=== PATIENT | female | born 1980 | race Caucasian/White ===

== ENCOUNTER 2017-07-21 19:28 | Emergency (ER) | payer MEDICAID ==
[~2017-07-21] VITALS: Ht 149.9 cm; Wt 91.2 kg
[2017-07-21 19:39] VITALS: BP 134/77
--- NOTE | 2017-07-21 20:12 | NUR ---
Patient ambulated to bed 06.
--- NOTE | 2017-07-21 20:25 | NUR ---
36 Y/O F W/C/O R LOWER ABD PAIN THAT STARTED AN EPIGASTRIC PAIN AND MOVED TO R LOWER ABD. PT ALSO STATES TO FEEL NAUSEATED. MED HX PSORIASIS, RHEUMATOID ARTHRITIS. NO OTHER S/S OF DISTRESS NOTED, ER MADE AWARE.
[2017-07-21] MEDS ORDERED: NACL 0.9% 500 ML IV ONE (20:37)
[2017-07-21] MEDS ORDERED: ONDANSETRON 4 MG/2 ML VIAL IVP ONE (20:40)
[2017-07-21] MEDS ORDERED: KETOROLAC 30 MG/ML VIAL IVP ONE (20:40)
[2017-07-21 20:51] LABS: BASOPHILS # (AUTO) 0.9 K/uL (0.00-0.22); EOSINOPHILS # (AUTO) 0.2 K/uL (0-0.4); HEMATOCRIT 39.6 % (36-48); LYMPHOCYTES # (AUTO) 2.5 K/uL (2.5-16.5); MEAN CORPUSCULAR HEMOGLOBIN 28 pg (27-31); MEAN CORPUSCULAR HGB CONC 33 g/dL (33-37); MEAN CORPUSCULAR VOLUME 85 fL (80-94); MONOCYTES # (AUTO) 0.6 K/uL (0.8-1.0); NEUTROPHILS # (AUTO) 10.1 K/uL (1.8-7.7); PLATELET COUNT (AUTO) 301 K/uL (140-450); RED BLOOD CELL COUNT(AUTO) 4.68 MIL/uL (4.20-5.40); RED CELL DISTRIBUTION WIDTH 14.4 % (11.6-13.7); WHITE BLOOD COUNT (AUTO) 14.3 K/uL (4.8-10.8)
[2017-07-21 21:05] LABS: ANION GAP 13.3 (8-16); CARBON DIOXIDE 28.2 mmol/L (21-32); CREATININE 0.9 mg/dL (0.6-1.3); POTASSIUM 3.5 mmol/L (3.5-5.1)
[2017-07-21 21:08] LABS: ALBUMIN 3.8 g/dL (3.4-5.0); TOTAL BILIRUBIN 0.6 mg/dL (0.0-1.0)
--- NOTE | 2017-07-21 21:10 | NUR ---
PT RESTING IN BED, NO S/S OF DISTRESS NOTED AT THE MOMENT. VSS.
[2017-07-21 23:10] VITALS: BP 118/74
--- NOTE | 2017-07-21 23:10 | NUR ---
Patient discharged with v/s stable. Written and verbal after care instructions given and explained. Patient alert, oriented and verbalized understanding of instructions. Ambulatory with steady gait. All questions addressed prior to discharge. ID band removed. Patient advised to follow up with PMD OR RETURN TO ER IF CONDITION WORSENS. Rx of ZOFRAN, AND TRAMADOL given. Patient educated on indication of medication including possible reaction and side effects. Opportunity to ask questions provided and answered.
== END 2017-07-21 23:10 | disposition home or self-care (01) ==
LOC: MED 19:28
DX: K29.70 Gastritis, unspecified, without bleeding (principal); M06.9 Rheumatoid arthritis, unspecified
CPT/HCPCS: 36415; 76705; 80053; 81002; 81025; 83690; 85025; 96361; 96374; 96375; 99285; J1885; J2405; Q0092

== ENCOUNTER 2017-08-12 22:42 | Inpatient (IN) | payer MEDICAID ==
[~2017-08-12] VITALS: Ht 149.9 cm; Wt 90.7 kg
[2017-08-12 22:49] VITALS: BP 125/76
--- NOTE | 2017-08-12 22:55 | NUR ---
Patient being evaluated by physician at [facility].
[2017-08-12] MEDS ORDERED: NACL 0.9% 1,000 ML IV ONE (22:59)
--- NOTE | 2017-08-12 23:00 | NUR ---
AMBULATED TO ER BED 4
--- NOTE | 2017-08-12 23:20 | NUR ---
36 Y/O F W/C/O R LOWER ABD PAIN X 2 YEARS ON AND OFF. PT DENIES ANY PAIN AT THE MOMENT. PT CONTACTED BY PMD AND REFERRED BY PMD AFTER RESULTS FROM CT SCAN OF ABD TO COME HERE D/T INFECTION IN APPENDIS. MED HX RHEUMOARTHRITIS, HYPERTHYROIDIS, PSORRIASIS.
[2017-08-12 23:21] LABS: APPEARANCE,URINE TURBID (CLEAR); BILIRUBIN,URINE 1+ (NEGATIVE); BLOOD, URINE 3+ (NEGATIVE); COLOR,URINE YELLOW (YELLOW); LEUKOCYTE ESTERASE ,URINE NEGATIVE (NEGATIVE); NITRITE, URINE NEGATIVE (NEGATIVE); UGLUCOSE NEGATIVE (NEGATIVE)
[2017-08-12 23:25] LABS: BASOPHILS # (AUTO) 0.2 K/uL (0.00-0.22); BASOPHILS % (AUTO) 3.2 % (0.0-2.0); EOSINOPHILS # (AUTO) 0.1 K/uL (0-0.4); EOSINOPHILS % (AUTO) 1.1 % (0.0-4.0); HEMATOCRIT 39.6 % (36-48); HEMOGLOBIN 13.1 g/dL (12.0-16.0); LYMPHOCYTES % (AUTO) 13.1 % (20.5-51.1); MEAN CORPUSCULAR HEMOGLOBIN 28 pg (27-31); MEAN CORPUSCULAR HGB CONC 33 g/dL (33-37); MEAN CORPUSCULAR VOLUME 85 fL (80-94); MONOCYTES # (AUTO) 0.7 K/uL (0.8-1.0); MONOCYTES % (AUTO) 9.3 % (1.7-9.3); NEUTROPHILS # (AUTO) 5.7 K/uL (1.8-7.7); NEUTROPHILS % (AUTO) 73.3 % (42.2-75.2); PLATELET COUNT (AUTO) 367 K/uL (140-450); RED BLOOD CELL COUNT(AUTO) 4.67 MIL/uL (4.20-5.40); RED CELL DISTRIBUTION WIDTH 14.7 % (11.6-13.7); WHITE BLOOD COUNT (AUTO) 7.7 K/uL (4.8-10.8)
[2017-08-12 23:30] LABS: ANION GAP 11.1 (8-16); CARBON DIOXIDE 27.3 mmol/L (21-32); CREATININE 0.8 mg/dL (0.6-1.3); POTASSIUM 3.4 mmol/L (3.5-5.1)
[2017-08-12 23:36] LABS: ALBUMIN 3.7 g/dL (3.4-5.0); TOTAL BILIRUBIN 0.4 mg/dL (0.0-1.0)
[2017-08-12 23:37] LABS: RBC,URINE 3-10 (FEW) /HPF (0-5)
[2017-08-13] MEDS ORDERED: metroNIDAZOLE 500 MG/NS PREMIX 100 ML IV ONE (00:45)
[2017-08-13] MEDS ORDERED: NACL 0.9% 1,000 ML IV ONE (00:45)
[2017-08-13] MEDS ORDERED: PIPERACILLIN/TAZOBACTAM 3.375 GM in DEXTROSE 5% 50 ML IV ONE (00:45)
[2017-08-13] MEDS ORDERED: PIPERACILLIN/TAZOBACTAM 3.375 GM VIAL IV ONE ×2 (00:59→04:08)
[2017-08-13] MEDS ORDERED: ACETAMINOPHEN 325 MG TAB PO PRN (01:15)
[2017-08-13] MEDS ORDERED: ONDANSETRON 4 MG/2 ML VIAL IVP PRN ×2 (01:15→10:05)
--- NOTE | 2017-08-13 01:27 | NUR ---
Patient will be admitted to care of DR DIAS. Admited to TELE 106A. Will go to room 106A. Belongings list completed. Report to KAYLEIGH LIU .
[2017-08-13 01:35] VITALS: BP_SYST 111; BP_SYST 76; BP_DIAS 76
--- NOTE | 2017-08-13 01:35 | NUR ---
Admitted from ER, with chief complaint of ABD PAIN, DX ACUTE APPENDICITIS 36 y/o, Female, Cooperative, AOX4, AMBULATORY, ABLE TO VERBALIZE NEEDS. PT'S CC IS ABD PAIN THAT SHE HAS BEEN HAVING INTERMITTENTLY 2 YEARS AGO, BUT STARTED WORSENING SINCE 07/23/17 WHEN SHE WENT TO THE ER. PT REPORTS GOING TO HAVE CT SCAN WITH CONTRAST TODAY AT PCP AND WAS REFERRED TO GO TO THE ER. BUT PT DENIES ABD PAIN AT THIS TIME, NO REBOUND TENDERNESS NOTED ON RLQ. PT DENIES NAUSEA/VOMITING. ABD IS SOFT, LARGE AND NONTENDER, BOWELS SOUNDS ACTIVE ALL QUADRANTS. AGRICULTURAL PRODUCE PACKER IN PLACE. PT DENIES CHEST PAIN, SOB OR S/S OF ACUTE DISTRESS. MULTIPLE RASHES NOTED ON BACK, ABD, BUE AND BLE, PT HAS HX PSORIASIS. WILL CALL FOR SCDs ORDERED IV ACCESS ASYMPTOMATIC, PATENT AND INTACT. IVPB FROM ER STILL INFUSING. DISCUSSED AND REVIEWED PLAN OF CARE WITH PT. PT VERBALIZED UNDERSTANDING. oriented to call light, bed, phone,television, bathroom, smoking policy, visiting hours, procedures, ID bracelet on. Belongings list checked. ALL NEEDS MET. SAFETY MEASURES ENSURED. CALL LIGHT WITHIN REACH. WILL CONTINUE TO MONITOR.
[2017-08-13 01:37] LABS: PROTHROMBIN TIME 9.9 secs (10.8-13.4)
[2017-08-13 01:49] LABS: BARBITURATE, URINE NEG. ng/ml (NEG <=200); BENZODIAZEPINE, URINE NEG. ng/mL (NEG <=200); CANNABINOID, URINE NEG. ng/mL (NEG <=50); COCAINE, URINE NEG. ng/mL (NEG <=300); OPIATE, URINE NEG. ng/mL (NEG <=2000); PHENCYCLIDINE SCREEN,URINE NEG. ng/mL (NEG <=25)
[2017-08-13 01:50] LABS: CHOL/HDL RATIO 4.3 (1-4.5); FREE T4 (FREE THYROXINE) 0.92 ng/dL (0.76-1.46); MAGNESIUM 1.9 mg/dL (1.8-2.4); PHOSPHORUS 3.9 mg/dL (2.5-4.9); THYROID STIMULATING HORMONE 23.04 uIU/mL (0.34-3.74)
[2017-08-13] MEDS: NACL 0.9% 1,000 ML IV SCH ×3 (02:07→16:35)
[2017-08-13] MEDS ORDERED: LEVO0.0211 PO (02:51)
[2017-08-13 04:00] VITALS: BP 120/66
[2017-08-13] MEDS: PIPER/TAZO 3.375GM/D5W PREMIX 50 ML IV SCH ×3 (04:09→20:30)
--- NOTE | 2017-08-13 04:12 | NUR ---
ADMINISTERED DUE ZOSYN IVPB WITH EDUCATION. PT VERBALIZED UNDERSTANDING, TOLERATED MED WELL. ALL NEEDS MET. IVPB INFUSING WELL. SAFETY MEASURES ENSURED. CALL LIGHT WITHIN REACH. WILL CONTINUE TO MONITOR.
[2017-08-13] MEDS: metroNIDAZOLE 500 MG/NS PREMIX 100 ML IV SCH ×3 (04:50→21:30)
[2017-08-13 06:46] LABS: BASOPHILS # (AUTO) 0.1 K/uL (0.00-0.22); BASOPHILS % (AUTO) 1.9 % (0.0-2.0); EOSINOPHILS # (AUTO) 0.1 K/uL (0-0.4); EOSINOPHILS % (AUTO) 1.9 % (0.0-4.0); HEMATOCRIT 35.3 % (36-48); HEMOGLOBIN 11.9 g/dL (12.0-16.0); LYMPHOCYTES # (AUTO) 1.2 K/uL (2.5-16.5); LYMPHOCYTES % (AUTO) 20.5 % (20.5-51.1); MEAN CORPUSCULAR HEMOGLOBIN 29 pg (27-31); MEAN CORPUSCULAR HGB CONC 34 g/dL (33-37); MEAN CORPUSCULAR VOLUME 85 fL (80-94); MONOCYTES # (AUTO) 0.5 K/uL (0.8-1.0); MONOCYTES % (AUTO) 7.8 % (1.7-9.3); NEUTROPHILS # (AUTO) 3.9 K/uL (1.8-7.7); NEUTROPHILS % (AUTO) 67.9 % (42.2-75.2); PLATELET COUNT (AUTO) 316 K/uL (140-450); RED BLOOD CELL COUNT(AUTO) 4.16 MIL/uL (4.20-5.40); RED CELL DISTRIBUTION WIDTH 14.7 % (11.6-13.7); WHITE BLOOD COUNT (AUTO) 5.8 K/uL (4.8-10.8)
[2017-08-13 07:06] LABS: ANION GAP 12.7 (8-16); CARBON DIOXIDE 24.6 mmol/L (21-32); CREATININE 0.7 mg/dL (0.6-1.3); POTASSIUM 3.3 mmol/L (3.5-5.1)
--- NOTE | 2017-08-13 07:10 | NUR ---
ENDORSED PLAN OF CARE TO AM NURSE. CONDITION STABLE.
--- NOTE | 2017-08-13 07:12 | NUR ---
RECEIVED BEDSIDE REPORT FROM NIGHT RN. PT RESTING IN BED. AAOX4. NO S/S OF ACUTE DISTRESS. PT DENIES PAIN. IV SITE PATENT AND INTACT. RASHES NOTED TO BUE, BLE, ABDOMEN AND BACK. TELE BOX IN PLACE, PLAN OF CARE UPDATED WITH PT, PT VERBALIZED UNDERSTANDING. CALL LIGHT WITHIN REACH. SAFETY MEASURES ENSURED. WILL CONTINUE TO MONITOR.
[2017-08-13 07:19] LABS: MAGNESIUM 1.7 mg/dL (1.8-2.4); PHOSPHORUS 2.7 mg/dL (2.5-4.9)
[2017-08-13 08:02] VITALS: BP 107/67
[2017-08-13] MEDS: DOCUSATE SODIUM 100 MG GELCAP PO SCH ×2 (08:19→21:31)
[2017-08-13] MEDS: PANTOPRAZOLE 40 MG TABEC PO SCH (08:20)
--- NOTE | 2017-08-13 08:22 | NUR ---
AM MEDICATIONS GIVEN WITH EDUCATION. PT VERBALIZED UNDERSTANDING AND TOLERATED WELL. NO S/S OF ACUTE DISTRESS. WILL CONTINUE TO MONITOR.
[2017-08-13] MEDS ORDERED: PANTOPRAZOLE 40 MG INJ VIAL IVP SCH (09:00)
[2017-08-13] MEDS: HYDROCORTISONE 2.5% OINT 30 GM TUBE TP SCH ×2 (09:00→21:30)
[2017-08-13] MEDS ORDERED: LEVOTHYROXINE 0.025 MG TAB PO SCH (09:00)
--- NOTE | 2017-08-13 09:24 | NUR ---
PT TAKEN OFF UNIT TO OR
[2017-08-13] MEDS ORDERED: KCL 20 MEQ/WATER INJ PREMIX 100 ML IV SCH (09:26)
[2017-08-13] MEDS ORDERED: SUCCINYLCHOLINE CHLORIDE 200 MG/10 ML VIAL IV ONE (09:27)
[2017-08-13] MEDS ORDERED: PROPOFOL 200 MG/20 ML VIAL IV ONE (09:27)
[2017-08-13] MEDS ORDERED: LIDOCAINE 2% 100 MG/5 ML SYR IVP ONE (09:27)
[2017-08-13] MEDS ORDERED: SEVOFLURANE 250 ML BTL INH ONE (09:27)
[2017-08-13] MEDS ORDERED: ROCURONIUM 50 MG/5 ML VIAL IV ONE (09:27)
[2017-08-13] MEDS ORDERED: ONDANSETRON 4 MG/2 ML VIAL IVP ONE (09:27)
[2017-08-13] MEDS ORDERED: NEOSTIGMINE 1:1000 10 MG/10 ML VIAL IM ONE (09:27)
[2017-08-13] MEDS ORDERED: GLYCOPYRROLATE 0.2 MG/ML VIAL IV ONE (09:27)
[2017-08-13] MEDS ORDERED: DEXAMETHASONE 4 MG/ML VIAL IVP ONE (09:27)
[2017-08-13] MEDS ORDERED: MAGNESIUM OXIDE 400 MG TAB PO SCH ×2 (09:36→21:00)
[2017-08-13] MEDS ORDERED: MIDAZOLAM 2 MG/2 ML VIAL ONE (09:48)
[2017-08-13] MEDS ORDERED: fentaNYL 0.05 MG/ML VIAL ONE (09:48)
[2017-08-13] MEDS: BUPIVACAINE-MPF 0.5% 30 ML VIAL INJ ONE ×2 (10:07→11:00)
--- NOTE | 2017-08-13 10:10 | NUR ---
PATIENT HAS BEEN SCREENED AND CATEGORIZED MODERATE NUTRITION RISK. PATIENT WILL BE SEEN WITHIN 3-5 DAYS OF ADMISSION. 08/15/17-08/17/[address]
[2017-08-13] MEDS: HYDROmorphone 1 MG/ML AMP IVP PRN ×2 (11:18→11:38)
[2017-08-13] MEDS ORDERED: HYDROmorphone PFS 2 MG/ML SYR ONE (11:25)
[2017-08-13 12:15] VITALS: BP 113/69
--- NOTE | 2017-08-13 12:16 | NUR ---
PT BACK FROM OR. NO S/S OF ACUTE DISTRESS. PT DENIES PAIN AT THIS TIME. IV SITE PATENT AND INTACT. DRESSING TO ABDOMEN DRY AND INTACT. CALL LIGHT WITHIN REACH. SAFETY MEASURES ENSURED. WILL CONTINUE TO MONITOR.
--- NOTE | 2017-08-13 12:45 | NUR ---
DRESSING FOR ABD INCISION NOTED. DRESSING IS INTACT, CLEAN AND DRY. ABD BINDER APPLIED.
--- NOTE | 2017-08-13 12:45 | NUR ---
RECEIVED BEDSIDE REPORT FROM VINAY LIU. PT RESTING IN BED. AAOX4. NO S/S OF ACUTE DISTRESS. PT IS ON 6L OXYGEN VIA MASK, O2 SAT 95%, PT DENIES PAIN. IV SITE PATENT AND INTACT. RASHES NOTED TO BUE, BLE, ABDOMEN AND BACK. TELE BOX IN PLACE, PLAN OF CARE UPDATED WITH PT, PT VERBALIZED UNDERSTANDING. CALL LIGHT WITHIN REACH. SAFETY MEASURES ENSURED. WILL CONTINUE TO MONITOR.
--- NOTE | 2017-08-13 12:47 | NUR ---
ENDORSED PLAN OF CARE TO RN. PT REMAINS STABLE.
[2017-08-13] MEDS ORDERED: POTASSIUM CHLORIDE 10 MEQ TABER PO SCH (13:00)
[2017-08-13 16:00] VITALS: BP 112/69
[2017-08-13] MEDS: MORPHINE SULFATE 4 MG/ML SYR IVP PRN (16:54)
[2017-08-13] MEDS ORDERED: TAMSULOSIN 0.4 MG CAP PO SCH (17:30)
--- NOTE | 2017-08-13 17:30 | NUR ---
STRAIGHT CATH DONE, STERIL TECHNIQUES APPLIED, 1L OF CLEAR YELLOW URINE OUTPUT. PT FELT MORE COMFORTABLE AFTER THE PROCEDURE.
[2017-08-13] MEDS: HYDROcodone/APAP 7.5/325 MG 1 TAB PO PRN (19:38)
--- NOTE | 2017-08-13 19:43 | NUR ---
ENDORSED PLAN OF CARE TO NIGHT RN. PT REMAINS STABLE.
--- NOTE | 2017-08-13 19:45 | NUR ---
RECEIVED REPORT FROM AM NURSE. PT IS S/P LAPAROSCOPIC TO OPEN APPENDECTOMY. PT RESTING IN BED, PT AOX4, PT DENIES BEING ABLE TO AMBULATE AT THIS TIME DUE TO PAIN, ABLE TO VERBALIZE NEEDS. PT C/O ABD PAIN, SEE PAIN ASSESSMENT, WILL MEDICATE ORDERED. PT DENIES HAVING GAS OR BM, ALSO C/O URINARY RETENTION THAT WAS RELIEVED BY STRAIGHT CATH IN THE AFTERNOON. PT DENIES NAUSEA/VOMITING AT THIS TIME, BUT REPORTS NOT BEING ABLE TO TOLERATE DINNER. ABD IS SOFT, TENDER, BOWELS. MIDLINE ADBOMEN ABD PAD DRESSING CLEAN DRY AND INTACT, TWO SMALLER BANDAID DRESSINGS ON RIGHT AND LEFT ABD CLEAN DRY AND INTACT. RN CRITICAL CARE IN PLACE. SCDs IN PLACE. IV ACCESS ASYMPTOMATIC, PATENT AND INTACT. IVF INFUSING WELL. DISCUSSED AND REVIEWED PLAN OF CARE WITH PT. INSTRUCTED PT TO USE IS 10X PER HOUR. PT VERBALIZED UNDERSTANDING. ALL NEEDS MET. SAFETY MEASURES ENSURED. CALL LIGHT WITHIN REACH. WILL CONTINUE TO MONITOR.
[2017-08-13 20:00] VITALS: BP 107/68
--- NOTE | 2017-08-13 21:31 | NUR ---
ADMINISTERED DUE MEDS WITH EDUCATION. PT VERBALIZED UNDERSTANDING, TOLERATED MEDS WELL. ALL NEEDS MET. IVPB INFUSING WELL. SAFETY MEASURES ENSURED. CALL LIGHT WITHIN REACH. WILL CONTINUE TO MONITOR.
--- NOTE | 2017-08-13 22:15 | NUR ---
PT C/O PAIN AND URINARY RETENTION, PT STATED SHE HAS NOT BEEN ABLE TO URINE. BLADDER SCAN PERFORMED, 581ML URINE NOTED. CALLED DR ALLAN, MADE MD AWARE. ORDERS RECEIVED FOR STRAIGHT CATHETER. BRAD RN AT BEDSIDE, INSERTED STRAIGHT CATHETER WITH STERILE TECHNIQUE. 700ML URINE OUT. PT TOLERATED WELL, REPORTS RELIEF OF PAIN. ALL NEEDS MET. IVF INFUSING WELL. SAFETY MEASURES ENSURED. CALL LIGHT WITHIN REACH. WILL CONTINUE TO MONITOR.
[2017-08-14] VITALS: BP 108/62
[2017-08-14] MEDS: NACL 0.9% 1,000 ML IV SCH ×4 (00:53→23:23)
[2017-08-14] MEDS: MORPHINE SULFATE 4 MG/ML SYR IVP PRN ×4 (01:15→20:42)
--- NOTE | 2017-08-14 01:15 | NUR ---
PT C/O PAIN. SEE PAIN ASSESSMENT. ADMINISTERED MORPHINE IVP PRN ORDERED WITH EDUCATION. PT VERBALIZED UNDERSTANDING. ALL NEEDS MET. IVF INFUSING WELL. SAFETY MEASURES ENSURED. CALL LIGHT WITHIN REACH. WILL CONTINUE TO MONITOR.
[2017-08-14 04:00] VITALS: BP 105/57
--- NOTE | 2017-08-14 04:18 | NUR ---
PT SLEEPING COMFORTABLY, AROUSABLE TO NAME, NO S/S OF ACUTE DISTRESS. ALL NEEDS MET. IVF INFUSING WELL. SAFETY MEASURES ENSURED. CALL LIGHT WITHIN REACH. WILL CONTINUE TO MONITOR.
[2017-08-14] MEDS: PIPER/TAZO 3.375GM/D5W PREMIX 50 ML IV SCH ×3 (04:27→21:57)
[2017-08-14] MEDS: metroNIDAZOLE 500 MG/NS PREMIX 100 ML IV SCH ×3 (05:34→20:53)
[2017-08-14] MEDS: LEVOTHYROXINE 0.025 MG TAB PO SCH (05:34)
--- NOTE | 2017-08-14 05:36 | NUR ---
ADMINISTERED DUE MEDS WITH EDUCATION. PT VERBALIZED UNDERSTANDING, TOLERATED MEDS WELL. ALL NEEDS. IVPB INFUSING WELL. SAFETY MEASURES ENSURED. CALL LIGHT WITHIN REACH. WILL CONTINUE TO MONITOR.
--- NOTE | 2017-08-14 07:15 | NUR ---
RECEIVED REPORT FROM NIGHT RN, PT AWAKE IN BED ON 2L 02 VIA NC, PT STATES 4/10 PAIN IN ABD, NO OTHER S/S OF ACUTE DISTRESS, INCENTIVE SPIROMETER AT BEDSIDE, A/OX4, IV PATENT AND INTACT, SAFETY PRECAUTIONS TAKEN, CALL LIGHT WITHIN REACH.
--- NOTE | 2017-08-14 07:15 | NUR ---
ENDORSED PLAN OF CARE TO AM NURSE. CONDITION STABLE.
[2017-08-14 07:29] LABS: ANION GAP 11.2 (8-16); CARBON DIOXIDE 25.7 mmol/L (21-32); CREATININE 0.8 mg/dL (0.6-1.3); POTASSIUM 3.9 mmol/L (3.5-5.1)
[2017-08-14 07:41] LABS: HEMATOCRIT 32.6 % (36-48); HEMOGLOBIN 10.9 g/dL (12.0-16.0); RED BLOOD CELL COUNT(AUTO) 3.81 MIL/uL (4.20-5.40); WHITE BLOOD COUNT (AUTO) 8.9 K/uL (4.8-10.8)
[2017-08-14 07:42] LABS: MEAN CORPUSCULAR HEMOGLOBIN 29 pg (27-31); MEAN CORPUSCULAR HGB CONC 33 g/dL (33-37); MEAN CORPUSCULAR VOLUME 86 fL (80-94); PLATELET COUNT (AUTO) 295 K/uL (140-450); RED CELL DISTRIBUTION WIDTH 15.2 % (11.6-13.7)
[2017-08-14 07:44] LABS: MAGNESIUM 1.8 mg/dL (1.8-2.4); PHOSPHORUS 3.7 mg/dL (2.5-4.9)
[2017-08-14 08:00] VITALS: BP 98/60
[2017-08-14] MEDS: TAMSULOSIN 0.4 MG CAP PO SCH (08:29)
[2017-08-14] MEDS: DOCUSATE SODIUM 100 MG GELCAP PO SCH ×2 (08:29→20:52)
[2017-08-14] MEDS: MAGNESIUM OXIDE 400 MG TAB PO SCH (08:30)
[2017-08-14] MEDS: PANTOPRAZOLE 40 MG TABEC PO SCH (08:30)
[2017-08-14] MEDS: HYDROCORTISONE 2.5% OINT 30 GM TUBE TP SCH ×2 (08:31→21:57)
--- NOTE | 2017-08-14 08:37 | NUR ---
DUE MEDICATIONS GIVEN WITH EDUCATION, PT VERBALIZED UNDERSTANDING, PT TOLERATED WELL, NO S/S OF ACUTE DISTRESS, PT DENIES PAIN, CALL LIGHT WITHIN REACH, WILL CONT TO MONITOR.
[2017-08-14 09:51] LABS: LYMPHOCYTES % (MANUAL) 14 % (20-46); MONOCYTES % (MANUAL) 4 % (5-12)
--- NOTE | 2017-08-14 11:08 | NUR ---
PT AWAKE IN BED ON 2LO2 VIA NC, PT DENIES PAIN AT THE TIME, NO S/S OF ACUTE DISTRESS, PT USING IS WITH RT, CALL LIGHT WITHIN REACH, WILL CONT TO MONITOR.
--- NOTE | 2017-08-14 14:30 | NUR ---
PT AWAKE IN BED ON 2L O2 VIA NC, PT DENIES ANY PAIN, NO S/S OF ACUTE DISTRESS, PT USING INCENTIVE SPIROMETER IN BED, CALL LIGHT WITHIN REACH, WILL CONT TO MONITOR.
[2017-08-14 16:00] VITALS: BP 106/77
[2017-08-14] MEDS ORDERED: MORPHINE SULFATE 2 MG/ML SYR IVP SCH ×2 (18:30→20:20)
--- NOTE | 2017-08-14 19:16 | NUR ---
ENDORSED CARE TO NIGHT RN, PT IN STABLE CONDITION.
--- NOTE | 2017-08-14 19:17 | NUR ---
RECEIVED HANDOFF REPORT FROM AM RN. PATIENT A&OX4. PATIENT STATES PAIN 04/01, MD AWARE WILL MEDICATE ORDERED. IV SITE PATENT AND INTACT. NO SIGNS OR SYMPTOMS OF ACUTE DISTRESS NOTED. CALL LIGHT WITHIN REACH. WILL CONTINUE TO MONITOR.
--- NOTE | 2017-08-14 21:56 | NUR ---
PM MEDS GIVEN WITH EDUCATION. PATIENT VERBALIZED UNDERSTANDING. ENCOURAGED PATIENT TO AMBULATE AND USE INCENTIVE SPIROMETER. REINFORCED TEACHING. PATIENT VERBALIZED UNDERSTANDING. NO SIGNS OR SYMPTOMS OF ACUTE DISTRESS NOTED. CALL LIGHT WITHIN REACH. WILL CONTINUE TO MONITOR.
--- NOTE | 2017-08-14 23:41 | NUR ---
PATIENT RESTING IN BED. NO SIGNS OR SYMPTOMS OF ACUTE DISTRESS NOTED. CALL LIGHT WITHIN REACH. WILL CONTINUE TO MONITOR.
[2017-08-15] VITALS: BP 110/70
[2017-08-15] MEDS: MORPHINE SULFATE 4 MG/ML SYR IVP PRN ×2 (02:43→12:19)
--- NOTE | 2017-08-15 03:24 | NUR ---
PATIENT RESTING IN BED. NO SIGNS OR SYMPTOMS OF ACUTE DISTRESS NOTED. CALL LIGHT WITHIN REACH. WILL CONTINUE TO MONITOR.
--- NOTE | 2017-08-15 04:10 | NUR ---
PATIENT STATES WANTING TO TRY AND AMBULATE. PATIENT WAS ABLE TO STAND UP FOR A FEW MOMENTS. PATENT WAS ABLE TO TAKE ONE STEP, AND REQUESTED TO LAY BACK IN BED DUE TO PAIN. PATIENT DENIES PAIN MEDS, SAID IT WAS "MORE BECAUSE IM TRYING TO WALK AND MOVING AROUND". PATIENT HAD SHORTNESS OF BREATH, 2L O2 APPLIED O2 SAT 98. NO SIGNS OR SYMPTOMS OF ACUTE DISTRESS NOTED. CALL LIGHT WITHIN REACH. WILL CONTINUE TO MONITOR.
[2017-08-15] MEDS: PIPER/TAZO 3.375GM/D5W PREMIX 50 ML IV SCH ×3 (04:58→20:51)
[2017-08-15] MEDS: NACL 0.9% 1,000 ML IV SCH ×3 (05:07→22:29)
[2017-08-15] MEDS: metroNIDAZOLE 500 MG/NS PREMIX 100 ML IV SCH ×3 (05:45→20:52)
[2017-08-15] MEDS: LEVOTHYROXINE 0.025 MG TAB PO SCH (06:32)
[2017-08-15] MEDS: HYDROcodone/APAP 7.5/325 MG 1 TAB PO PRN ×3 (06:53→19:53)
[2017-08-15 07:04] LABS: BASOPHILS # (AUTO) 0.1 K/uL (0.00-0.22); BASOPHILS % (AUTO) 1.5 % (0.0-2.0); EOSINOPHILS # (AUTO) 0.1 K/uL (0-0.4); HEMATOCRIT 33.4 % (36-48); HEMOGLOBIN 10.7 g/dL (12.0-16.0); LYMPHOCYTES % (AUTO) 11.3 % (20.5-51.1); MEAN CORPUSCULAR HEMOGLOBIN 28 pg (27-31); MEAN CORPUSCULAR HGB CONC 32 g/dL (33-37); MEAN CORPUSCULAR VOLUME 86 fL (80-94); MONOCYTES # (AUTO) 0.9 K/uL (0.8-1.0); MONOCYTES % (AUTO) 9.8 % (1.7-9.3); NEUTROPHILS % (AUTO) 76.4 % (42.2-75.2); PLATELET COUNT (AUTO) 311 K/uL (140-450); RED BLOOD CELL COUNT(AUTO) 3.88 MIL/uL (4.20-5.40); RED CELL DISTRIBUTION WIDTH 14.8 % (11.6-13.7); WHITE BLOOD COUNT (AUTO) 9.1 K/uL (4.8-10.8)
--- NOTE | 2017-08-15 07:25 | NUR ---
ENDORSED PLAN OF CARE TO AM RN. PATIENT IN STABLE CONDITION. NO SIGNS OR SYMPTOMS OF ACUTE DISTRESS NOTED. CALL LIGHT WITHIN REACH.
--- NOTE | 2017-08-15 07:26 | NUR ---
RECEIVED REPORT FROM THE WHEEL ALIGNMENT TECHNICIAN NURSE AT BEDSIDE FOR CONTINUITY OF CARE. PT IS ALERT AND AWAKE. INTRODUCED MYSELF AND UPDATE THE BOARD. V/S WITHIN NORMAL RANGE. DENIES PAIN. NOTED THE R 22G NS 130ML. NC O2 2L. NOTED THE ABDOMINAL BINDER. S/P OPEN APPENDECTOMY. PSORIASIS ON ALL EXTREMITIES AND BACK. REQUESTED ASSISTANCE WITH BEDPAN. ASSISTED. WILL CONTINUE TO MONITOR PT.
[2017-08-15 07:36] LABS: ANION GAP 11.4 (8-16); CARBON DIOXIDE 26.9 mmol/L (21-32); CREATININE 0.7 mg/dL (0.6-1.3); POTASSIUM 3.3 mmol/L (3.5-5.1)
[2017-08-15 07:39] LABS: MAGNESIUM 1.8 mg/dL (1.8-2.4); PHOSPHORUS 2.9 mg/dL (2.5-4.9)
[2017-08-15 08:00] VITALS: BP 100/58
[2017-08-15] MEDS: TAMSULOSIN 0.4 MG CAP PO SCH (08:24)
[2017-08-15] MEDS: MAGNESIUM OXIDE 400 MG TAB PO SCH (08:24)
[2017-08-15] MEDS: PANTOPRAZOLE 40 MG TABEC PO SCH (08:24)
[2017-08-15] MEDS: DOCUSATE SODIUM 100 MG GELCAP PO SCH ×2 (08:25→20:52)
[2017-08-15] MEDS: HYDROCORTISONE 2.5% OINT 30 GM TUBE TP SCH ×2 (08:29→21:03)
--- NOTE | 2017-08-15 08:30 | NUR ---
ADMINISTERED MORNING MEDS. PT TOLERATED WELL. WILL CONTINUE TO MONITOR PT.
--- NOTE | 2017-08-15 10:00 | NUR ---
PT AMBULATED TO THE BATHROOM EARLIER. SITTING IN CHAIR. ASSISTED BACK IN BED. PT DENIES PAIN AT THIS TIME. WILL CONTINUE TO MONITOR PT.
[2017-08-15] MEDS ORDERED: POTASSIUM CHLORIDE 10 MEQ TABER PO SCH (11:50)
--- NOTE | 2017-08-15 12:36 | NUR ---
FAMILY VISITING. EATING LUNCH. NO SIGNS OF DISTRESS. NO COMPLAINTS. WILL CONTINUE TO MONITOR PT.
--- NOTE | 2017-08-15 14:15 | NUR ---
FINISHED FLAGYL. NO COMPLAINTS AT THIS TIME. FAMILY STILL HERE AT BEDSIDE. WILL CONTINUE TO MONITOR PT.
[2017-08-15 16:00] VITALS: BP 113/67
[2017-08-15] MEDS ORDERED: MORPHINE SULFATE 2 MG/ML SYR IVP SCH (18:30)
--- NOTE | 2017-08-15 19:17 | NUR ---
ENDORSED PT TO THE PLANT OPERATIONS WORKER NURSE AT BEDSIDE FOR CONTINUITY OF CARE. PT IS STABLE.
[2017-08-15 20:00] VITALS: BP 103/66
[2017-08-16] MEDS: MORPHINE SULFATE 4 MG/ML SYR IVP PRN ×2 (04:21→20:59)
[2017-08-16] MEDS: PIPER/TAZO 3.375GM/D5W PREMIX 50 ML IV SCH ×3 (05:19→20:27)
[2017-08-16] MEDS: metroNIDAZOLE 500 MG/NS PREMIX 100 ML IV SCH ×3 (05:19→21:05)
[2017-08-16] MEDS: NACL 0.9% 1,000 ML IV SCH ×3 (06:11→21:35)
[2017-08-16] MEDS: LEVOTHYROXINE 0.025 MG TAB PO SCH (06:25)
[2017-08-16 06:46] LABS: BASOPHILS # (AUTO) 0.2 K/uL (0.00-0.22); BASOPHILS % (AUTO) 3.2 % (0.0-2.0); EOSINOPHILS # (AUTO) 0.2 K/uL (0-0.4); EOSINOPHILS % (AUTO) 2.8 % (0.0-4.0); HEMATOCRIT 32.7 % (36-48); HEMOGLOBIN 10.7 g/dL (12.0-16.0); LYMPHOCYTES # (AUTO) 0.8 K/uL (2.5-16.5); LYMPHOCYTES % (AUTO) 13.4 % (20.5-51.1); MEAN CORPUSCULAR HEMOGLOBIN 28 pg (27-31); MEAN CORPUSCULAR HGB CONC 33 g/dL (33-37); MEAN CORPUSCULAR VOLUME 86 fL (80-94); MONOCYTES # (AUTO) 0.6 K/uL (0.8-1.0); MONOCYTES % (AUTO) 9.8 % (1.7-9.3); NEUTROPHILS # (AUTO) 4.2 K/uL (1.8-7.7); NEUTROPHILS % (AUTO) 70.8 % (42.2-75.2); PLATELET COUNT (AUTO) 289 K/uL (140-450); RED BLOOD CELL COUNT(AUTO) 3.83 MIL/uL (4.20-5.40); RED CELL DISTRIBUTION WIDTH 14.9 % (11.6-13.7)
[2017-08-16 07:10] LABS: MAGNESIUM 1.9 mg/dL (1.8-2.4); PHOSPHORUS 3.1 mg/dL (2.5-4.9)
[2017-08-16 07:13] LABS: ANION GAP 10.6 (8-16); CARBON DIOXIDE 26.7 mmol/L (21-32); CREATININE 0.7 mg/dL (0.6-1.3); POTASSIUM 3.3 mmol/L (3.5-5.1)
--- NOTE | 2017-08-16 07:20 | NUR ---
RECEIVED REPORT FROM THE STRESS ENGINEER NURSE AT BEDSIDE FOR CONTINUITY OF CARE. PT IS AWAKE AND ORIENTED. INTRODUCED MYSELF AND UPDATED THE BOARD. PT IS AMBULATORY. HAS AN ABD BINDER ON. PSORIASIS ON ALL EXTREMITIES INCL BACK. V/S WITHIN NORMAL LIMITS. O2 SAT IS LOW AT 89-90% . REQUEST PT TO WEAR NC FOR A WHILE. IV ON R FA 22G NS AT 130ML. PT IS IN STABLE CONDITION. WILL CONTINUE TO MONITOR PT.
[2017-08-16 08:00] VITALS: BP 113/69
[2017-08-16] MEDS: PANTOPRAZOLE 40 MG TABEC PO SCH (09:00)
[2017-08-16] MEDS: DOCUSATE SODIUM 100 MG GELCAP PO SCH ×2 (09:00→20:25)
[2017-08-16] MEDS: TAMSULOSIN 0.4 MG CAP PO SCH (09:15)
[2017-08-16] MEDS: HYDROCORTISONE 2.5% OINT 30 GM TUBE TP SCH ×2 (09:16→21:45)
[2017-08-16] MEDS: MAGNESIUM OXIDE 400 MG TAB PO SCH (09:16)
[2017-08-16] MEDS: HYDROcodone/APAP 7.5/325 MG 1 TAB PO PRN (09:17)
--- NOTE | 2017-08-16 09:17 | NUR ---
ADMINISTERED MORNING MEDS INCLUDING ZOFRAN FOR NAUSEA AND NORCO FOR PAIN. PT TOLERATED WELL. WILL CONTINUE TO MONITOR PT.
--- NOTE | 2017-08-16 13:30 | NUR ---
PT VISITING WITH FAMILY. NO SIGNS OF DISTRESS. NO COMPLAINTS. WILL CONTINUE TO MONITOR PT.
[2017-08-16 16:00] VITALS: BP 109/67
--- NOTE | 2017-08-16 16:37 | NUR ---
ENCOURAGE PT TO AMBULATE IN THE HALLWAYS AND PRACTICE ON THE INCENTIVE SPIROMETER. PT VERBALIZED UNDERSTANDING.
--- NOTE | 2017-08-16 19:00 | NUR ---
OPENED UP ABD BINDER. CLEANED NEFTALI. 3 NEFTALI ON R SIDE, 3 NEFTALI IN THE LEFT, AND MID LINE INCISION W/ NEFTALI. DRY AND INTACT. TOOK PICTURE. UNABLE TO PRINT D/T NO PAPER. ENDORSED TO NIGHTSHIFT NURSE.
--- NOTE | 2017-08-16 19:15 | NUR ---
ENDORSED PT TO THE ENVIRONMENTAL TECHNICAL OFFICER NURSE AT BEDSIDE FOR CONTINUITY OF CARE. PT IS IN STABLE CONDITION.
--- NOTE | 2017-08-16 19:16 | NUR ---
PATIENT IS CURRENTLY AWAKE ALERT ORIENTED RESTING IN BED IVF INFUSING WELL IV SITE PATENT NO INFILTRATION NOTED NO REDNESS OR PUFFINESS NOTED.PATIENT HAS A ABDOMINAL DRESSING AND A ABDOMINAL BINDER OVER HER ABDOMEN AT THIS TIME PATIENT DOESN'T WANT ME TO OPEN AND CHECK HER INCISION AT THIS TIME PATIENT STATES,"THE RN NURSE IN IN THE MORNING JUST RECENTLY TOOK PICTURES AND PLACED A CLEAN DRESSING AND A ABDOMINAL BINDER CHECK ME LATER." PATIENT ALSO HAS SCD'S AT BEDSIDE EDUCATION GIVEN ON THE IMPORTANCE OF USING SCD'S FOR DVT PROPHALAXIS AND I ALSO ENCOURAGED THE PATIENT TO AMBULATE AND IF SHE NEEDS ASSISTANCE I ENCOURAGED THE PATIENT TO CALL FOR ASSISTANCE. SHE ALSO HAS INCENTIVE SPIROMETER FOR BREATHING EXERCISES EDUCATION GIVEN ON THE IMPORTANCE OF USING THE INCENTIVE SPIROMETER PATIENT VERBALIZES UNDERSTANDING PATIENT STATES,"I HAVE BEEN USING IT DURING THE DAY." VITAL SIGNS ARE STABLE NO FEVER NOTED AND 02SAT IS 92% WILL CONTINUE TO MONITOR CALL LIGHT WITHIN REACH.
--- NOTE | 2017-08-16 20:00 | NUR ---
Patient's Plan of Care was discussed and reviewed with JANITOR HELPER: MAGGIE ORDOÑEZ.
--- NOTE | 2017-08-16 20:27 | NUR ---
PATIENT IS CURRENTLY RECEIVING HER ANTIBIOTICS PATIENT IS SMILING INTERACTING WITH HER FRIEND.WILL CONTINUE TO MONITOR.
--- NOTE | 2017-08-16 20:57 | NUR ---
PATIENT IS IN SEVERE PAIN TO ABDOMEN 05/02 PATIENT AWARE THAT SHE HAS AN ORDER FOR MORPHINE 3MG IVP FOR SEVERE PAIN PATIENT VERBALIZES UNDERSTANDING BUT WANTS ME TO TELL SAMPLE COLLECTORALEXA REYES TO PUSH THE MORPHINE VERY SLOWLY PATIENT STATES," LAST NIGHT I FELT THAT THE NURSE GAVE ME THE MOPHINE TO FAST AND I WAS FEELING VERY DIZZY AND NAUSEATED." I TOLD ALEXA REYES ABOUT PATIENT CONCERNS ABOUT THE PAIN MEDICATIONS AT PATIENT'S BEDSIDE AND ALEXA RICCI WILL ADMINISTER THE PAIN MEDS SLOWLY AND CAREFULLY. CALL LIGHT WITHIN REACH WILL CONTINUE TO MONITOR.
--- NOTE | 2017-08-16 21:25 | NUR ---
PATIENT ASSISTED TO THE BATHROOM AND BACK TO BED PATIENT TOLERATES ACTIVITY WELL BUT GOT A LITTLE SHORT OF BREATH AND SO I PLACED HER ON 02 2L VIA NASAL CANNULA FOR NOW.
--- NOTE | 2017-08-16 21:27 | NUR ---
POTASSIUM LEVEL IS 3.3 MD RESIDENT ALLAN AWARE SHE SAID SHE WILL PUT IN NEW ORDERS.WILL CONTINUE TO MONITOR THE PATIENT SHE IS CURRENTLY TALKING TO HER FRIEND AT BEDSIDE.WILL CONTINUE TO MONITOR.CALL LIGHT WITHIN REACH.
[2017-08-16] MEDS ORDERED: POTASSIUM CHLORIDE 10 MEQ TABER PO SCH (21:45)
[2017-08-17 00:25] VITALS: BP 114/76
--- NOTE | 2017-08-17 00:30 | NUR ---
PATIENT AWAKE COMPLAINING OF GETTING SOB SHE IS ALREADY ON 02 AT 2L NC I CHECKED HER VITALS B/P AND HR WNL AND HER O2SAT IS 96% PATIENT IS CURRENTLY NOT GASPING FOR BREATH OR TRYING TO CATCH HER BREATH. REPOSITIONING HELPED PATIENT BETTER AND SHE CONTINUES TO HAVE OXYGEN IN PLACE. PATIENT STATES,"I FEEL BETTER." PATIENT ENCOURAGED TO CALL IF SHE NEEDS ANY ASSISTANCE SHE VERBALIZES UNDERSTANDING WILL CONTINUE TO MONITOR.
--- NOTE | 2017-08-17 03:25 | NUR ---
PATIENT IS CURRENTLY SLEEPING IN BED IN NO DISTRESS IVF INFUSING WELL IV SITE PATENT WILL CONTINUE TO MONITOR.CALL LIGHT WITHIN REACH.
[2017-08-17] MEDS: metroNIDAZOLE 500 MG/NS PREMIX 100 ML IV SCH ×2 (05:00→14:12)
[2017-08-17] MEDS: PIPER/TAZO 3.375GM/D5W PREMIX 50 ML IV SCH ×2 (05:00→14:09)
--- NOTE | 2017-08-17 05:01 | NUR ---
PATIENT STABLE AWAKE I ASKED THE PATIENT IF SHE WOULD LIKE PAIN MEDICATION PATIENT STATES,"NO THANKS NOT AT THIS TIME." PATIENT NEEDS MET.IVF INFUSING WELL IV SITE PATENT WILL CONTINUE TO MONITOR.
[2017-08-17] MEDS: NACL 0.9% 1,000 ML IV SCH (05:17)
[2017-08-17] MEDS: HYDROcodone/APAP 7.5/325 MG 1 TAB PO PRN (06:39)
[2017-08-17] MEDS: LEVOTHYROXINE 0.025 MG TAB PO SCH (06:39)
--- NOTE | 2017-08-17 06:43 | NUR ---
PATIENT STABLE RESTING IN BED IVF INFUSING WELL IV SITE PATENT NO INFILTRATION NOTED.PATIENT WAS MEDICATED FOR PAIN.CALL LIGHT WITHIN REACH.
--- NOTE | 2017-08-17 07:20 | NUR ---
RECEIVED REPORT FROM THE DIRECTOR FURNITURE NURSE AT BEDSIDE. PT IS ALERT, AWAKE, ORIENTEDX4. PT DENIES PAIN AT THIS TIME. IV NOTED ON THE RIGHT AC 18G NS 130ML. O2 2L VIA NC. S/P OPEN APPENDECTOMY, INCISION IS CLEAN AND DRY, NEFTALI INTACT. PSORIASIS ON ALL EXTREMITIES AND BACK. WILL CONTINUE TO MONITOR.
--- NOTE | 2017-08-17 07:42 | NUR ---
PATIENT IS CURRENTLY STABLE RESTING IN BED AT THIS TIME REPORT ENDORSED TO ALEXA GIMENEZ SHE WILL RESUME CARE OF THE PATIENT. Addendum: 08/17/17 at 0746 by Laura Encarnacion LVN REPORT WAS GIVEN TO ALEXA CALDERÓN NOT ALEXA GIMENEZ.
[2017-08-17 08:00] VITALS: BP 112/71
[2017-08-17 08:12] LABS: BASOPHILS # (AUTO) 0.2 K/uL (0.00-0.22); BASOPHILS % (AUTO) 3.2 % (0.0-2.0); EOSINOPHILS # (AUTO) 0.2 K/uL (0-0.4); EOSINOPHILS % (AUTO) 3.4 % (0.0-4.0); HEMATOCRIT 32.1 % (36-48); HEMOGLOBIN 10.3 g/dL (12.0-16.0); LYMPHOCYTES # (AUTO) 1.2 K/uL (2.5-16.5); LYMPHOCYTES % (AUTO) 20.1 % (20.5-51.1); MEAN CORPUSCULAR HEMOGLOBIN 28 pg (27-31); MEAN CORPUSCULAR HGB CONC 32 g/dL (33-37); MEAN CORPUSCULAR VOLUME 86 fL (80-94); MONOCYTES # (AUTO) 0.5 K/uL (0.8-1.0); MONOCYTES % (AUTO) 8.7 % (1.7-9.3); NEUTROPHILS # (AUTO) 3.7 K/uL (1.8-7.7); NEUTROPHILS % (AUTO) 64.6 % (42.2-75.2); PLATELET COUNT (AUTO) 304 K/uL (140-450); RED BLOOD CELL COUNT(AUTO) 3.72 MIL/uL (4.20-5.40); RED CELL DISTRIBUTION WIDTH 15.4 % (11.6-13.7); WHITE BLOOD COUNT (AUTO) 5.8 K/uL (4.8-10.8)
[2017-08-17 08:52] LABS: CARBON DIOXIDE 25.9 mmol/L (21-32); CREATININE 0.7 mg/dL (0.6-1.3); POTASSIUM 3.9 mmol/L (3.5-5.1)
[2017-08-17 08:57] LABS: PHOSPHORUS 3.3 mg/dL (2.5-4.9)
[2017-08-17] MEDS: HYDROCORTISONE 2.5% OINT 30 GM TUBE TP SCH (09:00)
--- NOTE | 2017-08-17 09:16 | NUR ---
08/17/17 RD INITIAL ASSESSMENT COMPLETED. PLEASE REFER TO NUTRITION ASSESSMENT UNDER CARE ACTIVITY FOR ESTIMATED NUTRITIONAL NEEDS. RD RECOMMENDATIONS: 1- RECOMMEND CONTINUE REGULAR DIET 2- F/U 3-5 DAYS; MODERATE RISK EM ROSALES MBA, RD
[2017-08-17] MEDS: DOCUSATE SODIUM 100 MG GELCAP PO SCH (09:20)
[2017-08-17] MEDS: TAMSULOSIN 0.4 MG CAP PO SCH (09:20)
[2017-08-17] MEDS: PANTOPRAZOLE 40 MG TABEC PO SCH (09:21)
[2017-08-17] MEDS: MAGNESIUM OXIDE 400 MG TAB PO SCH (09:21)
--- NOTE | 2017-08-17 10:30 | NUR ---
PT BACK FROM SHOWER. IV IS PATENT, INTACT AND ASYMPTOMATIC. NO S/S OF DISTRESS.
--- NOTE | 2017-08-17 14:20 | NUR ---
PATIENT STABLE RESTING IN BED IVF INFUSING WELL IV SITE PATENT NO INFILTRATION NOTED. CALL LIGHT WITHIN REACH.
[2017-08-17 16:00] VITALS: BP 115/69
[2017-08-17] MEDS ORDERED: METR250T2 PO (17:06)
[2017-08-17] MEDS ORDERED: LEVO750T2 PO (17:06)
[2017-08-17] MEDS ORDERED: LACT1.4C PO (17:06)
[2017-08-17] MEDS ORDERED: TAMS0.4C96 PO (17:06)
[2017-08-17] MEDS ORDERED: DOCU-299 PO (17:06)
[2017-08-17] MEDS ORDERED: PANT40EC28 PO (17:06)
[2017-08-17] MEDS ORDERED: ACET-9529 PO (17:06)
[2017-08-17] MEDS ORDERED: HYD2.5O TP (17:06)
--- NOTE | 2017-08-17 18:55 | NUR ---
PT DISCHARGED PER MD ORDER. DISCHARGE INSTRUCTIONS AND MEDICATION TEACHING PROVIDED. PT VERBALIZED UNDERSTANDING. IV CATH REMOVED, TIP INTACT, PRESSURE APPLIED. PT INCISIONAL PICTURE TAKEN AND FILED. PT HAS HER FAMILY AT BEDSIDE. PT LEFT IN STABLE CONDITION AND WITH ALL HER BELONGINGS.
== END 2017-08-17 19:20 | disposition home or self-care (01) | DRG 223 ==
LOC: MED 22:42 → MTU 08-13 01:11
PROVIDERS: ADMIT Family Medicine; ATTEND Family Medicine
PROC: 0DNJ0ZZ Release Appendix, Open Approach (ICD-10-PCS; 2017-08-13)
PROC: 0DTJ0ZZ Resection of Appendix, Open Approach (ICD-10-PCS; principal; 2017-08-13 09:30)
PROC: 0DJD4ZZ Inspection of Lower Intestinal Tract, Percutaneous Endoscopic Approach (ICD-10-PCS; 2017-08-13 09:30)
DX: K35.80 Unspecified acute appendicitis (principal); N17.0 Acute kidney failure with tubular necrosis; E03.9 Hypothyroidism, unspecified; L40.9 Psoriasis, unspecified; K75.81 Nonalcoholic steatohepatitis (NASH); E66.01 Morbid (severe) obesity due to excess calories; E83.42 Hypomagnesemia; E83.51 Hypocalcemia; E87.6 Hypokalemia; M06.9 Rheumatoid arthritis, unspecified; R33.9 Retention of urine, unspecified; R31.9 Hematuria, unspecified; Z68.39 Body mass index [BMI] 39.0-39.9, adult; Z79.899 Other long term (current) drug therapy
CPT/HCPCS: 36415; 71010; 80048; 80053; 80305; 81001; 81025; 82140; 82150; 83036; 83605; 83690; 83735; 83880; 84100; 84439; 84443; 84484; 85025; 85610; 85730; 87081; 87086; 93005; 96361; 96365; 96375; 99285; C1758; J0330; J1100; J1170; J1644; J2001; J2250; J2270; J2405; J2543; J2704; J2710; J3010; J3480; J3490; J7030; J7060; Q0092